=== PATIENT | male | born 1990 | race African-American/Black ===

== ENCOUNTER 2018-07-17 10:20 | Emergency (ER) | payer OTHER ==
--- NOTE | 2018-07-17 11:34 | RAD REPORT ---
EXAM DESCRIPTION: Avery Sigala (2 Views)07/17/2018 11:22 am CLINICAL HISTORY: Cough COMPARISON: None FINDINGS: The lungs appear clear of acute infiltrate. The heart is normal size IMPRESSION: No acute abnormalities displayed
--- NOTE | 2018-07-17 13:07 | ER ---
Nurse's Notes [facility] Name: Tonny Escobar Age: 27 yrs Sex: Male : 1990 Arrival Date: 07/17/2018 Time: 10:22 Bed Treatment Private MD: Diagnosis: Acute upper respiratory infection, unspecified Presentation: 07/17 10:31 Presenting complaint: Patient states: productive cough, congestion, sore throat, denies iw fever. Transition of care: patient was not received from another setting of care. Onset of symptoms was July 14, 2018. Risk Assessment: Do you want to hurt yourself or someone else? Patient reports no desire to harm self or others. Initial Sepsis Screen: Does the patient meet any 2 criteria? No. Patient's initial sepsis screen is negative. Does the patient have a suspected source of infection? No. Patient's initial sepsis screen is negative. Care prior to arrival: None. 10:31 Method Of Arrival: Ambulatory iw 10:31 Acuity: LIZET 4 iw Triage Assessment: 10:40 General: Appears in no apparent distress. Behavior is calm, cooperative. iw Historical: - Allergies: 10:34 No Known Allergies; iw - Home Meds: 10:34 Trazodone Oral [Active]; Seroquel Oral [Active]; Wellbutrin Oral [Active]; iw - PSHx: 10:34 None; iw - Immunization history:: Adult Immunizations up to date. - Social history:: Smoking status: Patient/guardian denies using tobacco. - Ebola Screening: : Patient negative for fever greater than or equal to 101.5 degrees Fahrenheit, and additional compatible Ebola Virus Disease symptoms Patient denies exposure to infectious person Patient denies travel to an Ebola-affected area in the 21 days before illness onset No symptoms or risks identified at this time. Screenin:00 Abuse screen: Denies threats or abuse. Denies injuries from another. Nutritional iw screening: No deficits noted. Tuberculosis screening: No symptoms or risk factors identified. Fall Risk None identified. Assessment: 10:20 General: Appears in no apparent distress. comfortable, Behavior is calm, cooperative. iw Pain: Denies pain. Neuro: Level of Consciousness is awake, alert, obeys commands, Oriented to person, place, time, situation, Moves all extremities. Cardiovascular: Patient's skin is warm and dry. Respiratory: Reports cough that is productive, Respiratory effort is even, unlabored, Respiratory pattern is regular, symmetrical. GI: No signs and/or symptoms were reported involving the gastrointestinal system. Derm: Skin is intact, is healthy with good turgor. Musculoskeletal: Range of motion: intact in all extremities. Vital Signs: 10:39 BP 131 / 76; Pulse 64; Resp 16; Temp 98.2(O); Pulse Ox 98% ; Weight 92.53 kg; Height 5 iw ft. 9 in. (175.26 cm); Pain 0/10; 10:39 Body Mass Index 30.13 (92.53 kg, 175.26 cm) iw ED Course: 10:22 Patient arrived in ED. dl4 10:23 Mariana Blankenship, RN is Primary Nurse. iw 10:25 Tylor Maddox PA is PHCP. [facility] 10:25 Ricki Kelley MD is Attending Physician. m 10:32 Triage completed. iw 10:39 Arm band placed on. iw 11:20 Chest Pa And Lat (2 Views) XRAY In Process Unspecified. EDMS 13:10 No provider procedures requiring assistance completed. Patient did not have IV access iw during this emergency room visit. Administered Medications: No medications were administered Outcome: 13:10 Eloped from patient exam room, after seeing physician Time discovered patient gone: iw July 17, 2018 at 13:10 13:10 Condition: good 13:13 Patient left the ED. iw Signatures: Dispatcher [employer] EDMS Tylor Maddox PA PA jmm Williams, Irene, RN RN iw Vern Alba dl4
--- NOTE | 2018-07-17 13:08 | EDPHYS ---
Physician Documentation [facility] Name: Tonny Escobar Age: 27 yrs Sex: Male : 1990 Arrival Date: 07/17/2018 Time: 10:22 Bed Treatment Private MD: ED Physician Ricki Kelley HPI: 07/17 10:59 This 27 yrs old Black Male presents to ER via Ambulatory with complaints of Flu jmm Symptoms. 10:59 The patient or guardian reports cough. Onset: The symptoms/episode began/occurred jmm gradually, 2 day(s) ago. Modifying factors: The symptoms are alleviated by nothing. the symptoms are aggravated by nothing. Associated signs and symptoms: Pertinent positives:. This is a 27 year old male that presents to the ED with complaints of cough, congestion for the past 2 days. Denies fever. . Historical: - Allergies: 10:34 No Known Allergies; iw - Home Meds: 10:34 Trazodone Oral [Active]; Seroquel Oral [Active]; Wellbutrin Oral [Active]; iw - PSHx: 10:34 None; iw - Immunization history:: Adult Immunizations up to date. - Social history:: Smoking status: Patient/guardian denies using tobacco. - Ebola Screening: : Patient negative for fever greater than or equal to 101.5 degrees Fahrenheit, and additional compatible Ebola Virus Disease symptoms Patient denies exposure to infectious person Patient denies travel to an Ebola-affected area in the 21 days before illness onset No symptoms or risks identified at this time. ROS: 10:59 Constitutional: Negative for fever, chills, and weight loss, Eyes: Negative for injury, jmm pain, redness, and discharge. 10:59 ENT: Positive for sinus congestion. 10:59 Respiratory: Positive for cough. 10:59 All other systems are negative. Exam: 10:59 Constitutional: This is a well developed, well nourished patient who is awake, alert, jmm and in no acute distress. Head/Face: atraumatic. Eyes: EOMI, no conjunctival erythema appreciated ENT: Moist Mucus Membranes 10:59 Chest/axilla: Normal chest wall appearance and motion. 10:59 ENT: Posterior pharynx: erythema, that is mild. 10:59 Cardiovascular: Rate: normal, Rhythm: regular. 10:59 Respiratory: the patient does not display signs of respiratory distress, Respirations: normal, Breath sounds: are clear throughout. 10:59 Abdomen/GI: Inspection: abdomen appears normal, Bowel sounds: normal, Palpation: abdomen is soft and non-tender. 10:59 Back: ROM is normal. 10:59 Musculoskeletal/extremity: ROM: no acute changes, intact in all extremities. 10:59 Skin: Appearance: Color: normal in color. 10:59 Neuro: Orientation: is normal, Mentation: is normal, Memory: is normal. 10:59 Psych: Behavior/mood is pleasant, cooperative. Vital Signs: 10:39 BP 131 / 76; Pulse 64; Resp 16; Temp 98.2(O); Pulse Ox 98% ; Weight 92.53 kg; Height 5 iw ft. 9 in. (175.26 cm); Pain 0/10; 10:39 Body Mass Index 30.13 (92.53 kg, 175.26 cm) iw MDM: 10:59 Patient medically screened. [facility] 13:05 Data reviewed: vital signs, nurses notes, lab test result(s). ED course: patient eloped hoa from the ED prior to final disposition. . 07/17 11:04 Order name: Flu [facility] 07/17 11:04 Order name: Strep; Complete Time: 11:43 [facility] 07/17 11:04 Order name: Chest Pa And Lat (2 Views) XRAY; Complete Time: 11:41 [facility] 07/17 11:43 Order name: Throat Culture EDMS Administered Medications: No medications were administered Disposition: 17:36 Co-signature as Attending Physician, Ricki Kelley MD. Disposition: 07/17/18 13:05 Patient left the facility after being seen by provider. Preliminary diagnosis is Acute upper respiratory infection, unspecified. - Patient left due to unknown. - Condition is Stable. Signatures: Dispatcher [employer] EDMS Tylor Maddox PA PA jmm Williams, Irene, RN RN Ricki Bedoya MD MD Corrections: (The following items were deleted from the chart) 13:13 13:05 07/17/2018 13:05 Patient left the facility after being seen by provider. iw Preliminary diagnosis is Acute upper respiratory infection, unspecified. Reason stated they are leaving due to unknown. Condition is Stable. [facility]
== END 2018-07-17 13:13 | disposition left against medical advice (07) ==
LOC: ER 10:20
DX: J06.9 Acute upper respiratory infection, unspecified (principal)
CPT/HCPCS: 71046; 87070; 87081; 87804; 99282